=== PATIENT | female | born 1960 | race Caucasian/White ===

== ENCOUNTER 2019-02-25 09:30 | Emergency (ER) | payer OTHER ==
[2019-02-25] MEDS ORDERED: ASPIRIN CHEW 81 MG TABLET PO STA (09:54)
[2019-02-25] MEDS ORDERED: LORazepam 2 MG/ML VIAL IVP STA (09:54)
--- NOTE | 2019-02-25 09:57 | ED Physician Documentation ---
PD HPI CHEST PAIN - Stated complaint Stated Complaint: CP/SWEATING - Chief complaint Chief Complaint: Cardiac - History obtained from History obtained from: Patient, Family - History of Present Illness Timing - onset: Today Timing - onset during: Light activity Timing - duration: Hours (1) Timing - details: Still present Quality: Pressure, Other ("Poking") Location: Left chest (Axillary line) Radiation: Neck, Other (Left shoulder). No: Left upper extremity Improved by: ASA (Took 2 baby aspirin) Worsened by: No: Exertion, Inspiration, Eating, Movement, Palpation, Position, Other Associated symptoms: Shortness of air, Diaphoresis, Nausea, General Weakness, Palpitations. No: Vomiting, Cough Recently seen: Not recently seen - Additional information Additional information: This is a 58-year-old woman who presents with complaints that she is having pain along the left chest and she points to the mid axillary line that is radiating up into the left shoulder and neck. This started today after she had been walking on the treadmill for about 30 minutes. Was about an hour ago and when she got off the treadmill she felt very short of breath like she had to take really deep breaths, her pulse felt really irregular and she was fatigued. 10 days ago she had an irregular heartbeat that seemed to last for hours and then it just resolved spontaneously and then again this morning at 2 AM she experienced some irregular heartbeats. She is very concerned after searching the Internet that this could be a cardiac event. She describes now a "poking, constant pressure" in her left back that she rates at a 6 out of 10. She has felt a little dizzy and very fatigued. Her left arm feels heavy and she was clammy but no nausea. She did have a cardiac evaluation with stress testing 8 or 9 years ago when she was taking hormone replacements. She decided to stop the hormone replacement at that time. She also reports a recent cold with some sneezing and a lot of blowing her nose. No coughing no fever. On a recent lab exam about a month ago with her primary care provider she was told that she had elevated iron and after researching the Internet found that this could be a hereditary condition because her paternal grandfather had the same thing and had to get frequent blood draws to decrease the amount of blood that he had. She readily admits that since she experienced this episode so 10 days ago she has been very worried about the symptoms whether or not they could represent something cardiac. She denies history of DVT. She is here with her . She does not take any prescription medications. No family history of heart attack. Review of Systems Constitutional: denies: Fever Eyes: denies: Decreased vision Ears: denies: Ear pain Nose: reports: Rhinorrhea / runny nose, Congestion. denies: Sinus pressure / pain Throat: reports: Sore throat Cardiac: reports: Chest pain / pressure, Palpitations. denies: Pedal edema Respiratory: reports: Dyspnea. denies: Cough GI: reports: Nausea. denies: Vomiting : reports: Other (She is postmenopausal not on hormone therapy). 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 - Present Medications Home Medications: Ambulatory Orders Medication Instructions Recorded Confirmed Ibuprofen [Motrin] 400 mg PO ONCE PRN 12/01/13 12/01/13 diazePAM [Valium] 5 mg PO ONCE PRN 12/01/13 12/01/13 - Allergies Allergies/Adverse Reactions: Allergies Allergy/AdvReac Type Severity Reaction Status Date / Time codeine Allergy Unknown Verified 02/25/19 09:36 erythromycin base Allergy Unknown Verified 02/25/19 09:36 [Erythromycin Base] - Social History Does the pt smoke?: No Smoking Status: Former smoker Does the pt drink ETOH?: No Does the pt have substance abuse?: No PD ED PE NORMAL - Vitals Vital signs reviewed: Yes - General General: Alert and oriented X 3, No acute distress, Well developed/nourished, Other (She appears very anxious almost trembling with a very rapid speech. Her and her are talking over one another trying to impress upon us the concerns of her symptoms.) - HEENT HEENT: Atraumatic, PERRL, EOMI, Ears normal, Moist mucous membranes - Neck Neck: Supple, no meningeal sign, No adenopathy, Thyroid normal - Cardiac Cardiac: RRR, No murmur, No rub, Strong equal pulses - Respiratory Respiratory: No respiratory distress, Clear bilaterally - Abdomen Abdomen: Normal bowel sounds, Soft, Non tender, Non distended - Back Back: No CVA TTP - Derm Derm: Normal color, Warm and dry, No rash - Extremities Extremities: No deformity, No tenderness to palpate, No edema - Neuro Neuro: Alert and oriented X 3, director video 2-12 intact, No motor deficit, No sensory deficit, Normal speech - Psych Psych: Other (Appears very anxious.) Results - Vitals Vitals: Vital Signs - 24 hr 02/25/19 02/25/19 02/25/19 09:36 10:00 10:30 Temperature 37.0 C Heart Rate 93 85 76 Respiratory 18 17 20 Rate Blood Pressure 145/99 H 121/68 94/55 L O2 Saturation 96 100 96 02/25/19 02/25/19 02/25/19 11:00 11:31 12:00 Temperature 36.9 C Heart Rate 71 86 72 Respiratory 18 20 17 Rate Blood Pressure 100/65 103/63 114/70 O2 Saturation 95 99 100 02/25/19 02/25/19 02/25/19 12:42 13:00 13:30 Temperature Heart Rate 76 80 84 Respiratory 22 16 16 Rate Blood Pressure 105/58 L 129/71 130/72 O2 Saturation 99 95 96 02/25/19 14:00 Temperature Heart Rate 88 Respiratory 15 Rate Blood Pressure 128/70 O2 Saturation 95 Oxygen O2 Source Room air - EKG (time done) 0933 Rate: Rate (enter#) (83) Rhythm: NSR Intervals: Normal AK. No: Wide QRS Ischemia: ST depression (II,V4 and V5). No: T wave inversion - Labs Labs: Laboratory Tests 02/25/19 02/25/19 02/25/19 09:42 09:42 09:42 WBC 7.3 RBC 4.42 Hgb 13.2 Hct 40.2 MCV 91.0 MCH 29.9 MCHC 32.8 RDW 11.9 L Plt Count 273 MPV 9.6 Neut # (Auto) 3.6 Lymph # (Auto) 2.4 [place] # (Auto) 0.9 Eos # (Auto) 0.3 Baso # (Auto) 0.0 Absolute Nucleated RBC 0.00 Nucleated RBC % 0.0 D-Dimer Sodium 136 Potassium 3.2 L Chloride 101 Carbon Dioxide 25 Anion Gap 10.0 BUN 17 Creatinine 0.7 Estimated GFR (MDRD) 86 L Glucose 114 H Calcium 9.0 Total Bilirubin 0.8 AST 17 ALT 13 Alkaline Phosphatase 42 Troponin I High Sens < 2.3 L Total Protein 7.3 Albumin 4.2 Globulin 3.1 Albumin/Globulin Ratio 1.4 Lipase 59 H Urine Color Urine Clarity Urine pH Ur Specific [place] Urine Protein Urine Glucose (UA) Urine Ketones Urine Occult Blood Urine Nitrite Urine Bilirubin Urine Urobilinogen Ur Leukocyte Esterase Ur Microscopic Review Urine Culture Comments 02/25/19 02/25/19 02/25/19 09:42 11:20 12:51 WBC RBC Hgb Hct MCV MCH MCHC RDW Plt Count MPV Neut # (Auto) Lymph # (Auto) [place] # (Auto) Eos # (Auto) Baso # (Auto) Absolute Nucleated RBC Nucleated RBC % D-Dimer < 200.0 L Sodium Potassium Chloride Carbon Dioxide Anion Gap BUN Creatinine Estimated GFR (MDRD) Glucose Calcium Total Bilirubin AST ALT Alkaline Phosphatase Troponin I High Sens < 2.3 L Total Protein Albumin Globulin Albumin/Globulin Ratio Lipase Urine Color YELLOW Urine Clarity CLEAR Urine pH 6.0 Ur Specific [place] 1.010 Urine Protein NEGATIVE Urine Glucose (UA) NEGATIVE Urine Ketones NEGATIVE Urine Occult Blood NEGATIVE Urine Nitrite NEGATIVE Urine Bilirubin NEGATIVE Urine Urobilinogen 0.2 (NORMAL) Ur Leukocyte Esterase NEGATIVE Ur Microscopic Review NOT INDICATED Urine Culture Comments NOT INDICATED - Rads (name of study) cxr Radiology: See rad report (neg acute) PD MEDICAL DECISION MAKING - ED course Complexity details: reviewed results, re-evaluated patient, d/w patient, d/w family ED course: 1120: Patient was given 4 baby aspirin and a milligram of Ativan IV. Her initial troponin is normal. Potassium slightly low at 3.2. Normal hemoglobin and hematocrit. Chest x-ray is clear. EKG did not show acute changes. On re evaluation the patient stated that her legs felt really weak and wobbly. She was reassured that this is a result of the Ativan. She still having pain at a 5 out of 10 and was offered and accepted a dose of Toradol IV while we are awaiting results of the urine to make sure there is not blood to suggest a kidney stone as well as a repeat 3-hour troponin. 1423: Patient is feeling better after the Toradol injection. Her 3-hour troponin was completely normal as well as the repeat EKG. I discussed these results with her and we went over that there is no evidence of a cardiac event today. No indication that she has had a pulmonary embolus or has pneumonia. No indication that this could be a kidney stone. She is feeling reassured and we talked about follow-up with her primary care provider to discuss whether or not stress testing would be warranted given her to recent events. We also talked about her anxiety when these events started happening and have encouraged her to try to relax if she is feeling that take deep breaths and try little ibuprofen at home if she is having discomfort. She states understanding. Departure - Departure Disposition: 01 Home, Self Care Clinical Impression: Atypical chest pain Condition: Good Instructions: ED Chest Pain Atypical Unkn Cause Follow-Up: ZAIN Milner [Provider Group] Comments: May take ibuprofen if you have continued pain. Follow-up with your primary care provider next week for reevaluation and to discuss your symptoms as well as the current lab tests. They may want a recheck your potassium level to be sure that that is not what is causing your frequent feeling of extra heartbeats. Return to the emergency department if your symptoms are worsening or you have other new concerning symptoms. Discharge Date/Time: 02/25/19 14:44
[2019-02-25 10:07] LABS: BASOPHILS % (AUTO) 0.6 %; EOSINOPHILS # (AUTO) 0.3 10^3/uL (0.0-0.7); EOSINOPHILS % (AUTO) 4.3 %; HGB - HEMOGLOBIN 13.2 g/dL (12.0-16.0); LYMPHOCYTES # (AUTO) 2.4 10^3/uL (1.5-3.5); MEAN CORPUSCULAR HEMOGLOBIN 29.9 pg (27.0-31.0); MEAN CORPUSCULAR HGB CONC 32.8 g/dL (32.0-36.0); MEAN PLATELET VOLUME 9.6 fL (7.9-10.8); MONOCYTES # (AUTO) 0.9 10^3/uL (0.0-1.0); MONOCYTES % (AUTO) 12.8 %; NEUTROPHILS # (AUTO) 3.6 10^3/uL (1.5-6.6); PLT - PLATELET COUNT 273 10^3/uL (130-450); RED BLOOD COUNT 4.42 10^6/uL (4.20-5.40); RED CELL DISTRIBUTION WIDTH 11.9 % (12.0-15.0); WHITE BLOOD COUNT 7.3 x10^3/uL (4.8-10.8)
[2019-02-25 10:13] LABS: ALBUMIN 4.2 g/dL (3.2-5.5); ALBUMIN/GLOBULIN RATIO 1.4 (1.0-2.2); BILIRUBIN,TOTAL 0.8 mg/dL (0.2-1.0); CREATININE 0.7 mg/dL (0.4-1.0); TOTAL PROTEIN 7.3 g/dL (6.7-8.2)
--- NOTE | 2019-02-25 10:39 | XRAY Report ---
Reason: cough Procedure Date: 02/25/2019 Accession Number: [id number] / [id number] Procedure: XR - Chest 2 View X-Ray CPT Code: 94212 Final Report FULL RESULT: EXAM: CHEST RADIOGRAPHY EXAM DATE: 02/25/2019 10:16 AM. CLINICAL HISTORY: COUGH. COMPARISON: None. TECHNIQUE: 2 views. FINDINGS: Lungs/Pleura: No focal opacities evident. No pleural effusion. No pneumothorax. Normal volumes. Mediastinum: Heart and mediastinal contours are notable for aortic calcification. Other: None. IMPRESSION: No acute cardiopulmonary abnormality demonstrated. RADIA
[2019-02-25] MEDS ORDERED: KETOROLAC 30 MG/ML VIAL IVP STA (11:19)
[2019-02-25] MEDS ORDERED: POTASSIUM CHLORIDE 20 MEQ TABLET PO STA (11:20)
[2019-02-25 11:33] LABS: BILIRUBIN,URINE NEGATIVE (NEGATIVE); GLUCOSE, URINE (UA) NEGATIVE (NEGATIVE); KETONES,URINE (UA) NEGATIVE (NEGATIVE); LEUKOCYTE ESTERASE, URINE NEGATIVE (NEGATIVE); NITRITE,URINE NEGATIVE (NEGATIVE); OCCULT BLOOD,URINE NEGATIVE (NEGATIVE); PROTEIN,URINE NEGATIVE (NEGATIVE); UROBILINOGEN,URINE 0.2 (NORMAL) E.U./dL (NORMAL)
[2019-02-25 11:39] LABS: CLARITY,URINE CLEAR (CLEAR)
[2019-02-25 14:25] VITALS: BP 128/70
== END 2019-02-25 14:44 | disposition home or self-care (01) ==
LOC: ED 09:30
DX: R07.89 Other chest pain (principal); Z87.891 Personal history of nicotine dependence
CPT/HCPCS: 36415; 71046; 80053; 81003; 83690; 84484; 85025; 85379; 93005; 99284; A9270; J2060; 81001; 87086

== ENCOUNTER 2019-10-22 06:16 | Inpatient (IN) | payer OTHER ==
[2019-10-22] MEDS ORDERED: LACTATED RINGERS 1,000 ML IV ONE ×2 (06:57→11:45)
--- NOTE | 2019-10-22 07:15 | ANESTHESIA ---
Pre-Anesthesia VS, & Labs - Diagnosis ovarian cyst - Procedure ovarian cystectomy Vital Signs: Temp Pulse Resp BP Pulse Ox 36.7 C 72 18 125/73 100 10/22/19 06:30 10/22/19 06:30 10/22/19 06:30 10/22/19 06:30 10/22/19 06:30 Height 5 ft 3 in Weight (kg) 61.8 kg Body Mass Index 24.4 - Is Patient ?: No - Lab Results Lab results reviewed: No Home Medications and Allergies Home Medications: Ambulatory Orders No Known Home Medications 10/16/19 No Known Home Medications 10/16/19 Allergies/Adverse Reactions: Allergies Allergy/AdvReac Type Severity Reaction Status Date / Time codeine Allergy Unknown Verified 02/25/19 09:36 erythromycin base Allergy Unknown Verified 02/25/19 09:36 [Erythromycin Base] shellfish derived Allergy Nausea Verified 10/16/19 14:11 Anes History & Medical History - Anesthetic History Anesthesia Complications: reports: No previous complications Family history of Anesthesia Complications: Denies Family history of Malignant Hyperthermia: Denies - Medical History Cardiovascular: reports: None Pulmonary: reports: None Gastrointestinal: reports: None Urinary: reports: None Musculoskeletal: reports: None Endocrine/Autoimmune: reports: None Blood Disorders: reports: None Skin: reports: None Smoking Status: Former smoker - Surgical History General: Other Eyes Ears Nose Throat (EENT): Tonsil/Adenoidectomy Gynecologic: Hysterectomy, Breast implants Exam General: Alert Dental: WNL Mouth Opening: Greater than 4 Fingerbreadths Neck Mobility: Normal Mallampati classification: I Thyromental Distance: 4-6 cm Respiratory: Lungs clear, Normal breath sounds, No respiratory distress, No accessory muscle use Cardiovascular: Regular rate, Normal S1, Normal S2, No murmurs Abdomen: Normal bowel sounds, Soft, No tenderness, No hepatospenomegaly, No mass es Mental/Cognitive Status: Alert/Oriented X3, Normal for patient Plan Anesthesia Type: General Consent for Procedure(s) Verified and Reviewed: Yes Code Status: Attempt Resuscitation ASA classification: 2-Mild systemic disease Is this case an emergency?: No
[2019-10-22] MEDS ORDERED: BUPIVACAINE 0.25%-EPI 1:200000 PF 30 ML VIAL ONE (07:36)
[2019-10-22] MEDS ORDERED: BUPIVACAINE 0.25%-EPI 1:200000 PF 30 ML VIAL SUBQ ONE (08:08)
[2019-10-22] MEDS ORDERED: LIDOCAINE-MPF 2% 5 ML VIAL IM ONE (09:21)
[2019-10-22] MEDS ORDERED: ePHEDrine 50 MG/ML VIAL IVP ONE (09:21)
[2019-10-22] MEDS ORDERED: ONDANSETRON 4 MG/2 ML VIAL IVP ONE (09:21)
[2019-10-22] MEDS ORDERED: HYDROmorphone 1 MG/ML CARPUJECT IVP ONE (09:21)
[2019-10-22] MEDS ORDERED: ROCURONIUM 50 MG/5 ML VIAL IVP ONE (09:21)
[2019-10-22] MEDS ORDERED: GLYCOPYRROLATE 1 MG/5 ML VIAL IVP ONE (09:21)
[2019-10-22] MEDS ORDERED: DEXAMETHASONE 4 MG/ML VIAL IVP ONE (09:21)
[2019-10-22] MEDS ORDERED: NEOSTIGMINE 1 MG/1 ML 10 ML MDV IVP ONE (09:21)
[2019-10-22] MEDS ORDERED: fentaNYL 100 MCG/2 ML VIAL IVP ONE (09:21)
[2019-10-22] MEDS ORDERED: THROMBIN (BOVINE) 5,000 UNIT VIAL TOP ONE ×2 (10:31→10:36)
[2019-10-22] MEDS ORDERED: ONDANSETRON 4 MG/2 ML VIAL IVP PRN ×2 (11:50→12:20)
[2019-10-22] MEDS: HYDROmorphone 0.5 MG/0.5 ML SYRINGE IVP PRN ×2 (12:05→12:10)
[2019-10-22] MEDS: fentaNYL 100 MCG/2 ML VIAL IVP PRN ×2 (12:05→12:15)
[2019-10-22] MEDS ORDERED: KETOROLAC 30 MG/ML VIAL IVP PRN (12:12)
[2019-10-22] MEDS ORDERED: fentaNYL 100 MCG/2 ML VIAL ONE (12:12)
[2019-10-22] MEDS ORDERED: HYDROmorphone 1 MG/ML CARPUJECT ONE (12:13)
[2019-10-22] MEDS ORDERED: oxyCODONE 5 MG TABLET PO PRN ×2 (12:15→18:58)
[2019-10-22] MEDS ORDERED: MORPHINE 2 MG/ML CARPUJECT IVP PRN ×2 (12:16→12:20)
[2019-10-22] MEDS ORDERED: METOCLOPRAMIDE 10 MG/2 ML VIAL IVP PRN (12:20)
[2019-10-22] MEDS ORDERED: KETOROLAC 15 MG/ML VIAL IVP ONE (12:20)
[2019-10-22] MEDS ORDERED: NALOXONE 0.4 MG/ML VIAL IVP PRN (12:20)
[2019-10-22] MEDS ORDERED: ATROPINE ABBOJECT 1 MG/10 ML SYRINGE IVP PRN (12:20)
[2019-10-22] MEDS ORDERED: ACETAMINOPHEN 1,000 MG/100 ML 100 ML IV ONE ×2 (12:20→12:35)
[2019-10-22] MEDS ORDERED: ePHEDrine 50 MG/ML VIAL IVP PRN (12:20)
--- NOTE | 2019-10-22 12:24 | ANESTHESIA POST OP EVALUATION ---
Anesthesia Post Eval - Post Anesthesia Eval Vitals: Last Vital Signs Temp 36.5 C 10/22/19 11:45 Pulse 92 10/22/19 12:20 Resp 11 L 10/22/19 12:20 BP 101/58 L 10/22/19 12:20 Pulse Ox 99 10/22/19 12:20 CV Function Including HR & BP: positive: Stable Pain Control: positive: Satisfactory Nausea & Vomiting: positive: Negative Mental Status: positive: Patient Participates Respiratory Status: Airway Patent Hydration Status: Satisfactory Anesthesia Complications: positive: None
--- NOTE | 2019-10-22 12:25 | OPERATIVE REPORT ---
Operative Report - General Admit Date: 10/22/19 Procedure Date: 10/22/19 Planned Procedure: Diagnostic Laparoscopy, Pelvic mass resection, possible laparotomy, bilateral oophorectomy, possible bilateral salpingectomy Pre-Op Diagnosis: Left Pelvic Mass Procedure Performed: Operative Laparoscopy, lysis of adhesions, laparotomy, bowel serosal injury repair, left pelvic mass cystectomy, left pelvic mass resection, right oophorectomy, cystoscopy Post Op Diagnosis: Left Pelvic Mass, extensive left abdominopelvic adhesions - Procedure Note Primary Surgeon: Yariel Secondary Surgeon: Binu Anesthesia Provider: Cristian Anesthesia Technique: General ET tube Pathology: 1. Peritoneal washings 2. Left pelvic mass 3. Right ovary IV Fluids (mL): 1,800 (Lactated Ringers) Estimated Blood Loss (mL): 300 Urine Output (mL): 150 Indications: 59 year old female with remote history of hysterectomy/bilateral salpingectomy, with complaint of abdominal pain and increasing abdominal girth, was noted to have a large left adnexal/pelvic mass on CT of the abdomen/pelvis, and pelvic US showing 14.7cm simple left adnexal cyst filling the left pelvis. Her CA-125 was normal and LISSET score was low risk. She was counseled and consented for the above procedures. Findings: Exam under anesthesia: large cystic mass involving entire left pelvis to umbilicus, not mobile. Laparoscopy: Absent uterus, cervix, and right fallopian tube. Normal right ovary. Large mass on left pelvis, with thick adhesion of omentum to anterior abdominal wall extending to left lower abdomen obscuring visualization of mass. Poorly visualized left pelvic side wall, unable to see extent of mass and unable to visualize left ureter. Converted to laparotomy. Laparotomy via Pfannenstiel: Thickly adherent sigmoid that is overlying the pelvic mass which appears to be retroperitoneal. General surgeon Dr. Albarran consulted for possible bowel injury, with noted deserosalized area of sigmoid reinforced. Attempts at mobilization of pelvic mass posteriorly was difficult due to inability to visualize, and needle decompression of the cyst was performed. Approximately 500ml of very light yellow clear fluid removed from left pelvic cystic mass with needle decompression. No identifiable left ovarian tissue found. Right ovary with filmy adhesions to normal appearing appendix. Complications: Bowel serosal injury - Other Other Information/Narrative: PROCEDURE: The patient was taken to the Operating Room. General anesthesia was performed without difficulty. She was placed in the lithotomy position in yellow-fin stirrups. The abdomen and vagina were prepped and draped in the usual sterile fashion. A Trent catheter was placed. A surgical time out was performed. A sponge stick was placed in the vagina to aid in manipulation of pelvic mass. Due to the size of the mass, a LUQ abdominal entry was made. Attention was turned to the patients abdomen where local skin anesthesia was injected at Stovall's point, 2cm below the costal margin at the mid-clavicular line. A 5 mm skin incision was made with the scalpel blade. The Veress needle was placed and entry into the abdomen was confirmed with initial entry pressure of 4mm Hg. Pneumoperitoneum was obtained with maximum pressure of 15mm Hg. Entry into the abdominal cavity was performed with direct laparoscopic visualization with a disposable 5 mm trocar through the LUQ incision. Survey of the abdomen and pelvis revealed findings as noted above. Two 5 mm trocars were placed at the right and left lower quadrants under direct visualization. The Endoshears were used to take down the omental adhesions to the anterior abdominal wall, with the adhesions beginning at the level of the umbilicys, using monopolar electrocautery for hemostasis. About 2 minutes into the dissection, the peritoneal washing was obtained and sent for pathology. The 5 mm Ligasure forceps were then used to continue the dissection. Upon reaching the LLQ at the level of the prior Pfannenstiel incision left apex, there was difficulty with visualizing the pelvic side wall due to the size of the mass. The decision was made to convert to laparotomy due to technical difficulty. The instruments and trocars were removed from the abdomen. A Pfannenstiel skin incision was made using the old incision scar. This incision was carried through to the level of the fascia. The fascia was incised using Bovie electrocautery. Elkin clamps were used to elevated the fascia, and the underlying rectus muscles were dissected off superiorly and inferiorly. The rectus was in the midline, and peritoneum entered sharply. The peritoneal incision was extended bluntly. A large Connor self-retaining retractor was placed. The abdomen was packed with moist sponges. The left pelvic cystic mass was dissected off; however, bowel was noted to be on top of the pelvic mass with possible injury. In-surgery General Surgery consultation was sought. Surgery was turned over to Dr. Albarran, general surgeon, who evaluated the mass and sigmoid, with noted deserosalized areas on sigmoid, which she reinforced with 3 interrupted sutures using 3-0 vicryl. The surgery was then turned back over to IRRIGATION SYSTEM INSTALLER for completion of the pelvic mass resection. The dissection was difficult to complete posteriorly due to lack of visualization. At this time, needle decompression was used to decrease the pelvic mass volume and improve visualization. Approximately 500ml of very light yellow clear fluid was removed with needle decompression. The remainder of the cyst wall was then removed with careful dissection, and sent for pathology. The cyst bed was made hemostatic with Bovie electrocautery. Careful examination of the cyst wall and the cyst bed with no identifiable ovarian tissue or fallopian tissue found. Attention was turned to the right ovary, which was noted to have small adhesions to the normal appearing appendix. The adhesions were taken down with Bovie electrocautery and sharp dissection. The right ovary was grasped with a [place] clamp, and the infundibulopelvic ligament was then transected using the Ligasure. The ovary was handed off the field. The pelvis was irrigated. The pelvic mass bed was noted to hemostatic with electrocautery and pressure, and Surgifoam with thrombin was placed in the pelvic mass bed to assure hemostasis. The right pedicle was noted to have excellent hemostasis. All sponges were removed from the abdomen. The peritoneum was closed with 2-0 vicryl in running fashion, with the aid of the Fish viscera retainer. The Fish was removed prior to complete closure of the peritoneum. The rectus was irrigated and made hemostatic with electrocautery. The fascia was closed with 0 vicryl in running fashion. The subcutaneous tissue was reapproximated using 3-0 vicryl in running fashion. The Pfannenstiel skin incision was closed using 4-0 vicryl in subcuticular fashion. The laparoscopic port site incisions were closed with 4-0 monocryl in subcuticular fashion. All skin incisions were covered with Dermabond. The sponge stick was removed from the vagina and the trent catheter removed. A diagnostic cystoscope was performed using a 70 degree cystoscope with saline distending medium. Approximately 300 mL of fluid was used to distend the bladder. The bladder mucosa was evaluated and noted to be free of injury or suture material. Bilateral efflux of urine was seen from bilateral ureteral orifices. The cystoscope was removed and the trnet catheter replaced. The patient was then taken out of lithotomy position, undraped and put into the supine position, awoken and then transferred to the Post-Anesthesia Care Unit in stable condition. All counts were read as correct at the end of the case.
[2019-10-22] MEDS: ACETAMINOPHEN 500 MG TABLET PO SCH ×2 (12:30→20:25)
[2019-10-22] MEDS ORDERED: LACTATED RINGERS 1,000 ML IV SCH (13:00)
[2019-10-22] MEDS: SIMETHICONE CHEW 80 MG TABLET PO SCH ×2 (13:50→20:25)
[2019-10-22] MEDS: LACTATED RINGERS 1,000 ML IV SCH (13:50)
[2019-10-22] MEDS: KETOROLAC 30 MG/ML VIAL IVP PRN ×2 (16:32→22:53)
[2019-10-22] MEDS: DOCUSATE SODIUM 100 MG CAPSULE PO SCH (20:25)
[2019-10-23] MEDS: LACTATED RINGERS 1,000 ML IV SCH (01:58)
[2019-10-23] MEDS: ACETAMINOPHEN 500 MG TABLET PO SCH ×3 (04:00→19:38)
[2019-10-23] MEDS: SIMETHICONE CHEW 80 MG TABLET PO SCH ×3 (05:08→21:33)
[2019-10-23 05:53] LABS: BASOPHILS % (AUTO) 0.3 %; EOSINOPHILS # (AUTO) 0.1 10^3/uL (0.0-0.7); EOSINOPHILS % (AUTO) 0.8 %; LYMPHOCYTES # (AUTO) 2.3 10^3/uL (1.5-3.5); LYMPHOCYTES % (AUTO) 29.8 %; MEAN CORPUSCULAR HGB CONC 31.9 g/dL (32.0-36.0); MONOCYTES # (AUTO) 1.3 10^3/uL (0.0-1.0); NEUTROPHILS # (AUTO) 4.1 10^3/uL (1.5-6.6); PLT - PLATELET COUNT 212 10^3/uL (130-450); RED BLOOD COUNT 3.33 10^6/uL (4.20-5.40); RED CELL DISTRIBUTION WIDTH 12.2 % (12.0-15.0); WHITE BLOOD COUNT 7.9 x10^3/uL (4.8-10.8)
[2019-10-23] MEDS: DOCUSATE SODIUM 100 MG CAPSULE PO SCH ×2 (08:52→19:38)
[2019-10-23] MEDS: ENOXAPARIN 40 MG/0.4 ML SYRINGE SUBQ SCH (08:52)
[2019-10-23] MEDS: KETOROLAC 30 MG/ML VIAL IVP PRN ×2 (10:17→16:25)
--- NOTE | 2019-10-23 11:36 | PROVIDER PROGRESS NOTE ---
Subjective - General Admit Date: 10/22/19 Procedure Date: 10/22/19 Post Op Days: 1 Procedure Performed: Diagnostic Laparoscopy, laparotomy, pelvic mass resection, Rt oophorectomy - Review of Systems Wound/Incisions: positive: Healing well, Dressing dry and intact General: positive: No symptoms HEENT: positive: No symptoms Pulmonary: positive: No symptoms Cardiovascular: positive: No symptoms Gastrointestinal: positive: Abdominal pain (around incisions) Genitourinary: positive: No symptoms Musculoskeletal: positive: Shoulder pain (left shoulder pain last night, resolved) Skin: positive: Bruising (around incision sites) Psychiatric: positive: No symptoms All Other Systems: positive: Other (Poor sleep) - Other Other Information/Narrative: 59yof now POD#1 s/p diagnostic laparoscopy converted to laparotomy due to poor visualization and adhesive disease, left pelvic mass resection and right oophorectomy, cystoscopy, overall doing well. She reports poor sleep due to noise and vital signs as well as SCDs making it difficult for her to sleep. Otherwise she reports she is doing fine. Desires to go home later today if possible so she can rest better. Trent catheter removed and pt not voided yet. She walked around the room a little bit last night. Afebrile, VSS Gen: NAD Resp: nonlabored breathing CV: no edema Abd: soft, appropriately tender at lower quadrants. LSC skin incisions with mild ecchymosis, nontender. : no blood on peripad Ext: nontender, SCDs recently removed Labs: post-op HCT 31 A/P: POD#1 s/p hysterectomy, doing well. No e/o infection. - mild anemia - pt denies lightheadedness/dizziness/fatigue. Recommended iron supplementation-- pt declined and desires diet modification at this time - continue routine post-op care - Due-to-void within 4-6 hours of trent removal. - recommended discharge home tomorrow; however, if doing well for the rest of the day, anticipate discharge home later on this afternoon/early evening if patient desires. MD Misty CHIE[employer] OF SERVICE [phone] cell [phone] office Objective - Patient Data Vital Signs: Vital Signs x48h Temp Pulse Resp BP Pulse Ox 10/23/19 08:39 97.7 F 84 103/55 L 100 10/23/19 04:10 97.9 F 79 16 99/54 L 100 Intake & Output: Intake and Output Totals x24h 10/21/19 10/22/19 10/23/19 23:59 23:59 23:59 Intake Total 1500 120 Output Total 1410 1325 Balance 90 -1205 - Lab Results Lab Results: 10/23/19 05:18 Other Lab Results: Lab Results x24hrs 10/23/19 Range/Units 05:18 WBC 7.9 (4.8-10.8) x10^3/uL RBC 3.33 L (4.20-5.40) 10^6/uL Hgb 10.0 L (12.0-16.0) g/dL Hct 31.3 L (37.0-47.0) % MCV 94.0 (81.0-99.0) fL MCH 30.0 (27.0-31.0) pg MCHC 31.9 L (32.0-36.0) g/dL RDW 12.2 (12.0-15.0) % Plt Count 212 (130-450) 10^3/uL MPV 10.0 (7.9-10.8) fL Neut # (Auto) 4.1 (1.5-6.6) 10^3/uL Lymph # (Auto) 2.3 (1.5-3.5) 10^3/uL [place] # (Auto) 1.3 H (0.0-1.0) 10^3/uL Eos # (Auto) 0.1 (0.0-0.7) 10^3/uL Baso # (Auto) 0.0 (0.0-0.1) 10^3/uL Absolute Nucleated RBC 0.00 x10^3/uL Nucleated RBC % 0.0 /100WBC - Current Medications Current Medications: Current Medications Generic Name Dose Route Start Last Admin Trade Name Prosperq PRN Reason Stop Dose Admin Acetaminophen 1,000 mg 10/22/19 12:00 10/23/19 04:00 Tylenol PO 1,000 mg Q8H SHU Administration Docusate Sodium 100 mg 10/22/19 21:00 10/23/19 08:52 Colace 100mg Capsule PO 100 mg BID SHU Administration Enoxaparin Sodium 40 mg 10/23/19 09:00 10/23/19 08:52 Lovenox SUBQ 40 mg DAILY SHU Administration Lactated Ringer's 1,000 mls @ 100 mls/hr 10/22/19 12:00 10/23/19 01:58 Lr IV 100 mls/hr .Q10H SHU Administration Ketorolac Tromethamine 30 mg 10/22/19 12:14 10/23/19 10:17 Toradol Inj (30mg) IVP 30 mg Q6HR PRN Administration PAIN Simethicone 80 mg 10/22/19 14:00 10/23/19 05:08 Mylicon PO 80 mg TID SHU Administration
[2019-10-23] MEDS ORDERED: IBUPROFEN 600 MG TABLET PO SCH (22:00)
[2019-10-24] MEDS ORDERED: SODIUM CHLORIDE FLUSH 0.9% 10 ML SYRINGE IVP PRN (01:19)
[2019-10-24] MEDS: ACETAMINOPHEN 500 MG TABLET PO SCH (03:49)
[2019-10-24] MEDS ORDERED: IBUPROFEN 600 MG TABLET PO SCH (06:00)
[2019-10-24] MEDS: SIMETHICONE CHEW 80 MG TABLET PO SCH (06:05)
--- NOTE | 2019-10-24 07:05 | DISCHARGE SUMMARY ---
"Discharge Summary Admit Date: 10/22/19 Discharge Date: 10/24/19 Discharging Provider: Yariel Code Status: Attempt Resuscitation Condition at Discharge: Good Discharge Disposition: 01 Home, Self Care - DIAGNOSES Admission Diagnoses: Abdominal pain, pelvic mass Discharge Diagnoses with Status of Each Condition: Abdominal pain - stable; pelvic mass - resolved - HPI History of Present Illness: 59yof with large left sided simple cystic pelvic mass and abdominal pain with increasing girth, recommended for pelvic mass resection. CA-125 and LISSET score low risk for malignancy. - CONSULTS | PROCEDURES Consultations: Intraoperative General Surgery Consult - Dr. Albarran Procedures: Diagnostic laparoscopy, laparotomy via Pfannenstiel, extensive lysis of abdominopelvic adhesions, sigmoid bowel serosal repair by general surgeon, left adnexal simple cyst drainage and cyst wall mass resection, cystoscopy - HOSPITAL COURSE Hospital Course: The patient underwent above described procedures, after which she was admitted for immediate post-op care. Her post-operative course was unremarkable. By POD#1 she was ambulating, tolerating a regular diet, voiding spontaneously, and had good pain control with oral pain medications. She was meeting discharge criteria and was discharge home in stable condition on POD#2. - ALLERGIES Allergies/Adverse Reactions: Allergies Allergy/AdvReac Type Severity Reaction Status Date / Time codeine Allergy Unknown Verified 02/25/19 09:36 erythromycin base Allergy Unknown Verified 02/25/19 09:36 [Erythromycin Base] shellfish derived Allergy Nausea Verified 10/16/19 14:11 - MEDICATIONS Home Medications: Ambulatory Orders Medication Instructions Recorded Confirmed No Known Home Medications 10/15/10/16/19 Home Medications Other | Comments: Ibuprofen (qdco-[id number]) - take 600 mg by mouth every 6 hours with food, as needed for pain Acetaminophen ([id number]) - take 500 to 1000 mg every 6 hours as needed for pain. Do not exceed 3000 mg in 24 hours. Oxycodone (previously prescribed) - take 1/2 tablet to 1 tablet every 6 hours as needed for pain not controlled by ibuprofen or acetaminophen. Colace (Docusate sodium, [id number])) - take 100 mg twice a day as needed for constipation Simethicone (qken-jjd-nferlih) - chew 80 mg every 6 hours as needed for gas pain/bloating - PHYSICAL EXAM AT DISCHARGE General Appearance: positive: No acute distress, Alert Eyes Bilateral: positive: Normal inspection ENT: positive: ENT inspection nml Neck: positive: Nml inspection Respiratory: positive: Chest non-tender, No respiratory distress Cardiovascular: positive: Regular rate & rhythm Peripheral Pulses: positive: 2+ Abdomen: positive: No distention, Tenderness (appropriate to post-surgical state) Back: positive: Nml inspection Skin: positive: Color nml, No rash Extremities: positive: Non-tender, Full ROM, Nml appearance, No pedal edema, Calf tenderness Neurologic/Psychiatric: positive: Oriented x3, Motor nml, Sensation nml, Mood/affect nml - LABS Result Diagrams: 10/23/19 05:18 - FOLLOW UP Follow Up: Follow-up as scheduled with Dr. Saldivar at [facility] ([phone]). - TIME SPENT Time Spent in Discharge (Minutes): 15"
--- NOTE | 2019-10-24 07:19 | Discharge Plan ---
Discharge Plan Problem Reviewed?: Yes Disposition: 01 Home, Self Care Condition: Good Diet: Regular Activity Restrictions: Additional Comments (Pelvic rest, no tub baths, no lifting greater than 10 pounds for 2-4 weeks. No driving for 2 weeks, and no driving while taking oxycodone.) Shower Restrictions: No (Dry off incisions as soon as shower is done.) Driving Restrictions: Yes (No driving for 2 weeks and no driving while taking oxycodone.) Weight Bearing: Full Weight Instruction Topics: Laparotomy Exploratory Additional Instructions or Follow Up instructions: Follow up as scheduled with Dr. Saldivar at the [facility] ([phone]), [facility]. No Smoking: If you smoke, Please STOP! Call for help. Follow-up with: Nelson Hyatt MD [Primary Care Provider] -
[2019-10-24 08:11] VITALS: BP 94/52
[2019-10-24] MEDS: ENOXAPARIN 40 MG/0.4 ML SYRINGE SUBQ SCH (09:14)
[2019-10-24] MEDS: DOCUSATE SODIUM 100 MG CAPSULE PO SCH (09:14)
[2019-10-24] MEDS ORDERED: PHENYLEPHRINE 10 MG/ML VIAL IV ONE (10:59)
== END 2019-10-24 11:00 | disposition home or self-care (01) | DRG 743 ==
LOC: SDS 06:16 → MS3 11:50 → MS2 13:05
PROVIDERS: ADMIT Obstetrics & Gynecology; ATTEND Obstetrics & Gynecology
PROC: 0DNN0ZZ Release Sigmoid Colon, Open Approach (ICD-10-PCS; 2019-10-22)
PROC: 0UT00ZZ Resection of Right Ovary, Open Approach (ICD-10-PCS; 2019-10-22)
PROC: 0WJJ4ZZ Inspection of Pelvic Cavity, Percutaneous Endoscopic Approach (ICD-10-PCS; 2019-10-22)
PROC: 0UB60ZZ Excision of Left Fallopian Tube, Open Approach (ICD-10-PCS; principal; 2019-10-22 07:30)
DX: N83.8 Other noninflammatory disorders of ovary, fallopian tube and broad ligament (principal); N99.4 Postprocedural pelvic peritoneal adhesions; N83.291 Other ovarian cyst, right side; F41.9 Anxiety disorder, unspecified; Z90.710 Acquired absence of both cervix and uterus; Z87.891 Personal history of nicotine dependence
CPT/HCPCS: 36415; 85025

== ENCOUNTER 2020-07-24 09:45 | Outpatient (CLI) | payer OTHER | END 2020-07-24 09:46 | disposition home or self-care (01) | LOC: DI 09:45 | PROVIDERS: ATTEND Physician Assistant | DX: N64.9 Disorder of breast, unspecified (principal) ==

== ENCOUNTER 2020-07-24 11:10 | Emergency (ER) | payer OTHER ==
[2020-07-24 11:28] LABS: BASOPHILS # (AUTO) 0.1 10^3/uL (0.0-0.1); BASOPHILS % (AUTO) 0.8 %; EOSINOPHILS # (AUTO) 0.1 10^3/uL (0.0-0.7); EOSINOPHILS % (AUTO) 0.9 %; HCT - HEMATOCRIT 38.9 % (37.0-47.0); HGB - HEMOGLOBIN 13.1 g/dL (12.0-16.0); LYMPHOCYTES # (AUTO) 2.6 10^3/uL (1.5-3.5); LYMPHOCYTES % (AUTO) 33.7 %; MEAN CORPUSCULAR HGB CONC 33.7 g/dL (32.0-36.0); MEAN PLATELET VOLUME 9.1 fL (7.9-10.8); MONOCYTES # (AUTO) 0.8 10^3/uL (0.0-1.0); MONOCYTES % (AUTO) 10.4 %; NEUTROPHILS # (AUTO) 4.2 10^3/uL (1.5-6.6); NEUTROPHILS % (AUTO) 53.8 %; PLT - PLATELET COUNT 257 10^3/uL (130-450); RED BLOOD COUNT 4.37 10^6/uL (4.20-5.40); RED CELL DISTRIBUTION WIDTH 11.5 % (12.0-15.0); WHITE BLOOD COUNT 7.8 x10^3/uL (4.8-10.8)
[2020-07-24 11:49] LABS: ALBUMIN 4.5 g/dL (3.2-5.5); ALBUMIN/GLOBULIN RATIO 1.7 (1.0-2.2); BILIRUBIN,TOTAL 0.6 mg/dL (0.2-1.0); CALCIUM 9.2 mg/dL (8.5-10.3); CREATININE 0.7 mg/dL (0.4-1.0); POTASSIUM 3.4 mmol/L (3.5-5.0); TOTAL PROTEIN 7.1 g/dL (6.7-8.2)
[2020-07-24] MEDS ORDERED: SODIUM CHLORIDE 0.9% 1,000 ML IV STA (11:56)
--- NOTE | 2020-07-24 13:03 | ED Physician Documentation ---
History of Present Illness - Stated complaint Stated Complaint: LIGHT HEADED - Chief complaint Chief Complaint: Neuro - History obtained from History obtained from: Patient - Additonal information Additional information: Patient comes emergency department for chief complaint of lightheaded episode while in the mammography suite. Patient states she has a history of positional hypotension and states that this felt the same. She states she woke up feeling fine this morning, but while changing positions during her mammogram, began to notice that she was feeling lightheaded and her vision was becoming "law". Patient denies any chest pain or shortness of breath. Patient states her lightheadedness is better now but she just feels "off". Patient states that she has been struggling with not feeling right ever since she had an ovarian cyst removal about 6 months ago. 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 She wonders if something went wrong during the surgery because she has never felt the same since. Patient denies any fevers or chills. No bowel difficulties currently, though she has had a problem with this on and off. She has had a 18 pound weight loss over the last 6 months, but states she has changed her diet significantly since the issues after surgery. No other complaints at this time. Patient does have a primary care physician with whom she follows up. She states she has discussed her ongoing symptoms with her primary doctor and but he seems to know what is wrong with her. Review of Systems Ten Systems: 10 systems reviewed and negative Constitutional: reports: Reviewed and negative Eyes: reports: Reviewed and negative Ears: reports: Reviewed and negative Nose: reports: Reviewed and negative Throat: reports: Reviewed and negative Cardiac: reports: Reviewed and negative Respiratory: reports: Reviewed and negative GI: reports: Reviewed and negative : reports: Reviewed and negative Skin: reports: Reviewed and negative Musculoskeletal: reports: Reviewed and negative Neurologic: reports: Generalized weakness (chronically), Near syncope Psychiatric: reports: Reviewed and negative Endocrine: reports: Reviewed and negative Immunocompromised: reports: Reviewed and negative PD PAST MEDICAL HISTORY - Past Medical History Past Medical History: Yes Cardiovascular: None Respiratory: None Endocrine/Autoimmune: None GI: None WORK ORDER DETAILER: Ectopic : None HEENT: None Psych: None Musculoskeletal: None Derm: None - Past Surgical History Past Surgical History: Yes General: Other /WORK ORDER DETAILER: Hysterectomy, Breast implants HEENT: Tonsil/Adenoidectomy - Present Medications Home Medications: Ambulatory Orders Medication Instructions Recorded Confirmed No Known Home Medications 10/16/19 07/24/20 - Allergies Allergies/Adverse Reactions: Allergies Allergy/AdvReac Type Severity Reaction Status Date / Time codeine Allergy Unknown Verified 07/24/20 11:14 erythromycin base Allergy Unknown Verified 07/24/20 11:14 [Erythromycin Base] shellfish derived Allergy Nausea Verified 07/24/20 11:14 - Social History Does the pt smoke?: No Smoking Status: Never smoker Does the pt drink ETOH?: No Does the pt have substance abuse?: No - Immunizations Immunizations: TDAP >10years/unknown PD ED PE NORMAL - Vitals Vital signs reviewed: Yes - General General: Alert and oriented X 3, No acute distress, Well developed/nourished - HEENT HEENT: Atraumatic, PERRL, EOMI, Moist mucous membranes - Neck Neck: Supple, no meningeal sign - Cardiac Cardiac: RRR, No murmur - Respiratory Respiratory: No respiratory distress, Clear bilaterally - Abdomen Abdomen: Soft, Non tender, Non distended - Derm Derm: Normal color, Warm and dry, No rash - Extremities Extremities: No deformity, No edema, No calf tenderness / cord - Neuro Neuro: Alert and oriented X 3, communications program manager 2-12 intact, Normal speech, Other (Grossly intact) - Psych Psych: Normal mood, Normal affect Results - Vitals Vitals: Vital Signs - 24 hr 07/24/20 07/24/20 11:11 11:17 Temperature 36.5 C Heart Rate 70 61 Respiratory 18 16 Rate Blood Pressure 99/55 L 149/120 H O2 Saturation 99 95 Oxygen O2 Source Room air - EKG (time done) 1108 Rate: Rate (enter#) (66) Rhythm: NSR Hooper: Normal Intervals: Normal AR QRS: Normal Ischemia: ST depression (minimal, lateral leads) Compare to prior EKG: Old EKG unavailable Computer interpretation: Agree with computer - Labs Labs: Laboratory Tests 07/24/20 07/24/20 07/24/20 11:16 11:19 11:19 WBC 7.8 RBC 4.37 Hgb 13.1 Hct 38.9 MCV 89.0 MCH 30.0 MCHC 33.7 RDW 11.5 L Plt Count 257 MPV 9.1 Neut # (Auto) 4.2 Lymph # (Auto) 2.6 [place] # (Auto) 0.8 Eos # (Auto) 0.1 Baso # (Auto) 0.1 Absolute Nucleated RBC 0.00 Nucleated RBC % 0.0 Sodium 139 Potassium 3.4 L Chloride 105 Carbon Dioxide 25 Anion Gap 9.0 BUN 15 Creatinine 0.7 Estimated GFR (MDRD) 85 L Glucose 116 H POC Whole Bld Glucose 103 H Calcium 9.2 Total Bilirubin 0.6 AST 17 ALT 14 Alkaline Phosphatase 37 L Troponin I High Sens Total Protein 7.1 Albumin 4.5 Globulin 2.6 Albumin/Globulin Ratio 1.7 Lipase 40 TSH 07/24/20 07/24/20 11:19 11:19 WBC RBC Hgb Hct MCV MCH MCHC RDW Plt Count MPV Neut # (Auto) Lymph # (Auto) [place] # (Auto) Eos # (Auto) Baso # (Auto) Absolute Nucleated RBC Nucleated RBC % Sodium Potassium Chloride Carbon Dioxide Anion Gap BUN Creatinine Estimated GFR (MDRD) Glucose POC Whole Bld Glucose Calcium Total Bilirubin AST ALT Alkaline Phosphatase Troponin I High Sens < 2.3 L Total Protein Albumin Globulin Albumin/Globulin Ratio Lipase TSH 3.34 PD MEDICAL DECISION MAKING - ED course Complexity details: reviewed results, re-evaluated patient, considered differential, d/w patient ED course: Patient was given a liter bolus point and normal saline, and worked up with labs and EKG, And found to have slight hypokalemia of 3.4. Troponin and TSH were both normal. I discussed with the patient that she will need to follow-up with her doctor for further evaluation of her hypotensive episodes. She may benefit from wearing an event monitor if she continues to have the symptoms with greater frequency. We have discussed home management of the symptoms, as well as the usual indications for return. Departure - Departure Disposition: 01 Home, Self Care Clinical Impression: Near syncope, Hypokalemia Condition: Stable Instructions: ED Potassium Deficiency, ED Near Syncope Unkn Comments: Overall, your EKG and labs look good. You do have a slightly low potassium, for which you have been started on a short course of replacements. You may follow- up with your primary care physician to have your potassium rechecked in about a week. Your thyroid-stimulating hormone level was normal, as were your other basic lab indices. There is no evidence of an acute emergent condition at this time. However, given that you have been having episodes from time to time of the near fainting and low blood pressure, you should talk to your doctor about whether a follow-up with cardiology or an event monitor evaluation would be appropriate.
[2020-07-24] MEDS ORDERED: POTASSIUM CHLORIDE 20 MEQ TABLET PO STA (13:11)
[2020-07-24 13:15] VITALS: BP 99/47
== END 2020-07-24 14:33 | disposition home or self-care (01) ==
LOC: ED 11:10
DX: R55 Syncope and collapse (principal); E87.6 Hypokalemia; N64.9 Disorder of breast, unspecified
CPT/HCPCS: 36415; 77066; 80053; 83690; 84443; 84484; 85025; 93005; 96360; 99283; 99284; A9270

== ENCOUNTER 2023-07-27 18:48 | Outpatient (CLI) | payer OTHER ==
--- NOTE | 2023-07-28 12:01 | Ultrasound Report ---
PROCEDURE: Pelvic Complete INDICATIONS: HIST OF PELVIC MASS. 62-year-old female transvaginal ultrasound of the pelvic cavity fo r abnormal fullness. History of pelvic mass in the past. TECHNIQUE: Real-time transabdominal scanning was performed of the pelvic organs, with image documentation. COMPARISON: No previous study is available for comparison. FINDINGS: Uterus: Status post hysterectomy. Ovaries: Status post right oophorectomy. Patient unsure if left ovary is present. Left ovary is not v isualized sonographically. No adnexal mass. Other: No free pelvic fluid. IMPRESSION: No pelvic mass identified sonographically. Reviewed by: Cayden Chaparro MD on 07/28/2023 12:00 PM PDT Approved by: Cayden Chaparro MD on 07/28/2023 12:00 PM PDT Station ID: [id number]
== END 2023-07-27 18:49 | disposition home or self-care (01) ==
LOC: DI 18:48
PROVIDERS: ATTEND Nurse Practitioner Family
DX: R10.9 Unspecified abdominal pain (principal); Z80.0 Family history of malignant neoplasm of digestive organs